=== PATIENT | male | born 1975 | race Caucasian/White ===

== ENCOUNTER → 2016-12-30 | Outpatient (CLI) | payer OTHER ==
[~2016-12-30] MED LIST: CEPH500C2 PO; DOCU-94 PO; IBUP-1050 PO; LEVO5TAB2 PO; OXYC-57 PO; OXYC1TAB3 PO; PRLSR20 PO; SULF800T23 PO
--- NOTE | 2016-12-30 08:48 | DIAGNOSTIC IMAGING REPORT ---
RIGHT SHOULDER MIN 2 VIEWS CLINICAL HISTORY: RIGHT SHOULDER PAIN Right pain COMPARISON: None. DISCUSSION: Minimal degenerative change acromioclavicular joint. Minimal degenerative changes of the articular services the glenohumeral joint. There is no evidence for soft tissue swelling. IMPRESSION: Minimal degenerative change. Electronically signed by: Eladio Griffith M.D. 12/30/2016 8:47 AM Dictated Date/Time: 12/30/2016 8:47 AM
== END | disposition home or self-care (01) ==
LOC: C.RDSM 08:30
PROVIDERS: ATTEND Physician Assistant
DX: M25.511 Pain in right shoulder (principal)

== ENCOUNTER 2017-05-26 10:43 | Day surgery (SDC) | payer OTHER ==
[2017-05-25 17:53] VITALS: BMI 27.0
[~2017-05-26] VITALS: Ht 182.9 cm; Wt 92.5 kg
[~2017-05-26 10:43] MED LIST changes: +CEFAZOLIN 2000 MG/60 ML D5W IV SCH; -CEPH500C2 PO; -DOCU-94 PO; -IBUP-1050 PO; +LEVO-371 PO; -LEVO5TAB2 PO; +NURSING VERBAL MED ORDER ONE; -OXYC-57 PO; -OXYC1TAB3 PO; -PRLSR20 PO; -SULF800T23 PO
[2017-05-26] MEDS ORDERED: PRLSR20 PO (11:04)
[2017-05-26 11:05] VITALS: BP 113/80; PULSE 66; TEMP 36.8; O2SAT 96; Ht 182.9 cm; Wt 92.5 kg
[2017-05-26] MEDS ORDERED: IBUP-1050 PO (11:05)
[2017-05-26] MEDS ORDERED: ATROPINE SULFATE 0.1 MG/ML 5ML SYR IV PRN (11:30)
[2017-05-26] MEDS ORDERED: LABETALOL HCL IV 5 MG/ML 20ML IV PRN (11:30)
[2017-05-26] MEDS ORDERED: NALOXONE HCL 0.4 MG/1 ML VIAL/CARP IV PRN (11:30)
[2017-05-26] MEDS ORDERED: CEFAZOLIN 2000 MG/60 ML D5W IV SCH (11:30)
[2017-05-26] MEDS ORDERED: LACTATED RINGER'S 1000ML 1,000 ML IV SCH ×2 (11:30→12:51)
[2017-05-26] MEDS ORDERED: PHENYLEPHRINE 100MCG/ML 5ML SYR IV PRN (11:30)
[2017-05-26] MEDS ORDERED: MEPERIDINE HCL 25 MG/ML CARP IV PRN (11:30)
[2017-05-26] MEDS ORDERED: ONDANSETRON INJ 2 MG/ML 2 ML VIAL IV PRN ×2 (11:30→13:00)
[2017-05-26] MEDS ORDERED: HYDROmorphone INJ 2 MG/ML SYR/VIAL IV PRN (11:30)
[2017-05-26] MEDS ORDERED: FENTANYL CITRATE INJ 50 MCG/1 ML 2 ML VIAL IV PRN (11:30)
[2017-05-26] MEDS ORDERED: EpHEDrine SULFATE INJ 50 MG/ML AMP IV PRN (11:30)
[2017-05-26] MEDS ORDERED: FLUMAZENIL 0.1 MG/1 ML 10 ML VIAL IV PRN (11:30)
--- NOTE | 2017-05-26 11:57 | History & Physical Bridge Note ---
H&P Re-Evaluation Bridge Note: I have examined the patient, reviewed the History & Physical and in the interval since the performance of the History & Physical I have noted the following changes of clinical significance: pt states the area opened and drained on it's own last night...pain improved. will still do exam under anesthesia with washout and surgery as needed.
--- NOTE | 2017-05-26 11:59 | Discharge Instructions ---
Discharge Instructions Date of Service May 26, 2017. Visit Reason for Visit: Thrombosed Hemorrhoids Discharge Discharge Diagnosis / Problem: hemorrhoidectomy Discharge Goals Goal(s): Decrease discomfort Activity Recommendations Activity Limitations: as noted below Shower/Bathe: no limitations Driving or Machine Use: if not taking [place] Anesthesia . Post Anesthesia Instructions: If you have had General Anesthesia or IV Sedation: * Do not drive today. * Resume driving when surgeon permits. * Do not make important decisions or sign legal documents today. * Call surgeon for: 1. Temperature elevations greater than 101 degrees F. 2. Uncontrollable pain. 3. Excessive bleeding. 4. Persistent nausea and vomiting. 5. Medication intolerance (nausea, vomiting or rash). * For nausea and vomiting use only clear liquids such as: tea, soda, bouillon until nausea subsides, then gradually increase diet as tolerated. * If you have any concerns or questions, call your surgeon's office. If physician is unavailable and it is an emergency, call 911 or go to the nearest emergency room. . Instructions / Follow-Up Instructions / Follow-Up Dr. Huffman in 2 weeks, call [phone] for any questions You may have some bleeding for a week or so Remove packing tomorrow and begin sitz baths 3-4 times daily Diet Recommendations Recommended Home Diet: no limitations Pending Studies Studies pending at discharge: no Medical Emergencies . Who to Call and When: Medical Emergencies: If at any time you feel your situation is an emergency, please call 911 immediately. . Non-Emergent Contact Non-Emergency issues call your: Surgeon Call Non-Emergent contact if: you have a fever, temperature is above 101.5, your pain is not controlled, you have any medication questions . . "Provider Documentation" section prepared by Killian Black. .
[2017-05-26] MEDS ORDERED: FENTANYL CITRATE INJ 50 MCG/1 ML 2 ML VIAL ONE (12:04)
[2017-05-26] MEDS ORDERED: MIDAZOLAM HCL 1 MG/ML 2ML VIAL ONE (12:05)
[2017-05-26] MEDS ORDERED: GELATIN SPONGE SZ 100 ONE (12:07)
[2017-05-26] MEDS ORDERED: BUPIVACAINE/EPINEPHRINE 0.5% MPF 1:200,000 30 ML VIAL ONE (12:07)
[2017-05-26] MEDS ORDERED: ONDANSETRON INJ 2 MG/ML 2 ML VIAL ONE (12:41)
[2017-05-26] MEDS ORDERED: PROPOFOL IV EMULSION 10 MG/ML 20 ML VIAL IV ONE (12:41)
[2017-05-26] MEDS ORDERED: LIDOCAINE HCL 2% 2 ML VIAL (20MG/ML) ONE (12:41)
[2017-05-26] MEDS ORDERED: OXYC-57 PO (12:51)
[2017-05-26] MEDS ORDERED: SULF800T23 PO (12:51)
[2017-05-26] MEDS ORDERED: DOCU-94 PO (12:51)
--- NOTE | 2017-05-26 12:54 | [facility] Operative Report ---
Operative Report Operative Date May 26, 2017. Pre-Operative Diagnosis Thrombosed Hemmorroids with abcess Post-Operative Diagnosis Same Procedure(s) Performed rectal exam under anesthesia with Hemorroidectomy Surgeon Dr Huffman Pipe Wrapping Machine Operator Surgeon(s) Killian Black PA-C Estimated Blood Loss 5ML Findings thrombosed hemorrhoid Specimens A. Hemorrhoid Anesthesia LMA Complication(s) None Disposition Recovery Room / PACU Description of Procedure After informed consent was obtained the patient was taken to the operating room and placed in a supine position. After successful placement of the laryngeal mask airway the patient was placed in the high lithotomy position with yellowfin stirrups. The rectal area was sterilely prepped and draped in usual fashion. At about the 3 o'clock position there was an opening in the skin from a recently self drained hemorrhoid with thrombosis and abscess. The patient stated that it broke open in the middle of night releasing some blood and pus. It was dramatically improved from when I had looked at it in the office yesterday. I used a bullet type of proctoscope to examine the anus and rectum in 360. No other abnormalities were noted other this area. I was able to take a lacrimal probe and probe the opening into the rectum. There was no fistula associated with it. There was a loose hemorrhoidal tissue there that was already opened. There was currently no purulent drainage whatsoever. Because of the recurrent nature of this I decided to go ahead and perform hemorrhoidectomy at this time. I injected Marcaine around the skin and anoderm. I then used a 15 blade scalpel to make a small opening in the anoderm and Metzenbaum scissors to expose the pedicle. I then used a hemorrhoid clamp to come across it and excised the hemorrhoid. I used 2-0 chromic catgut to ligated using a Catrachita stitch. We thoroughly irrigated the rectum. There was adequate hemostasis. No other abnormalities were identified. A piece of Gelfoam was placed in the rectum sterile dressing was applied the patient was placed back into a supine position and extubated and transferred recovery in stable condition I attest to the content of the Intraoperative Record and any orders documented therein. Any exceptions are noted below.
[2017-05-26] MEDS ORDERED: OXYCODONE/ACETAMINOPHEN 5-325 TAB PO PRN (13:00)
[2017-05-26] MEDS ORDERED: MoRPHine SULFATE 4 MG/ML 1 ML CARP\\VIAL IV PRN (13:00)
--- NOTE | 2017-05-26 13:15 | Anesthesiology Progress Note ---
Anesthesia Post Op Note Date & Time May 26, 2017 at 13:15 Vital Signs Pain Intensity: 0 Vital Signs Past 12 Hours Date Time Temp Pulse Resp B/P (MAP) Pulse Ox O2 Delivery O2 Flow Rate FiO2 05/26/17 11:05 36.8 66 18 113/80 (91) 96 Room Air Notes Mental Status: alert / awake / arousable, participated in evaluation Pt Amnestic to Procedure: Yes Nausea / Vomiting: adequately controlled Pain: adequately controlled Airway Patency, RR, SpO2: stable & adequate BP & HR: stable & adequate Hydration State: stable & adequate Anesthetic Complications: no major complications apparent
[2017-05-26 13:32] VITALS: BP 121/82; PULSE 65; TEMP 36.5; O2SAT 98
[2017-05-26 14:00] VITALS: BP 113/87; PULSE 68; O2SAT 100
[2017-05-26 14:30] VITALS: BP 123/87; PULSE 62; TEMP 36.7; O2SAT 99
== END 2017-05-26 14:40 | disposition home or self-care (01) ==
LOC: C.ACU 10:43
PROVIDERS: ATTEND Surgery
DX: K64.5 Perianal venous thrombosis (principal); K21.9 Gastro-esophageal reflux disease without esophagitis; F17.220 Nicotine dependence, chewing tobacco, uncomplicated; Z82.49 Family history of ischemic heart disease and other diseases of the circulatory system